=== PATIENT | male | born 1960 | race African-American/Black ===

== ENCOUNTER 2023-02-17 03:39 | Emergency (ER) | payer MEDICAID, OTHER ==
[~2023-02-17] VITALS: Ht 190.5 cm; Wt 95.0 kg
[~2023-02-17 03:39] MED LIST: ALBU4TAB6 PO; PRED5TAB48 PO
[2023-02-17 05:26] LABS: BASOPHILS % 0.6 % (0.0-2.0); EOSINOPHILS % 4.6 % (0.0-5.0); HEMATOCRIT. 40.1 % (42.0-52.0); HEMOGLOBIN. 13.5 g/dL (14.0-18.0); LYMPHOCYTES % 24.6 % (20.0-50.0); MEAN CORPUSCULAR HEMOGLOBIN 32.2 pg (28.0-32.0); MEAN CORPUSCULAR VOLUME 95.3 fL (80.0-94.0); MEAN PLATELET VOLUME 6.8 fl (7.4-10.4); MONOCYTES % 11.9 % (2.0-8.0); NEUTROPHILS % 58.3 % (40.0-76.0); PLATELET 267 x1000/uL (130-400)
[2023-02-17 05:34] LABS: CHLORIDE 108 mEq/L (98-107)
[2023-02-17] MEDS ORDERED: PREDNISONE 20MG TABLET PO STA (05:40)
[2023-02-17] MEDS ORDERED: IPRATROPIUM BROMIDE (0.02%) 0.5MG/2.5ML NEB HHN STA (05:40)
[2023-02-17] MEDS: ALBUTEROL (0.083%) 2.5MG/3ML NEB HHN SCH ×3 (06:00→08:31)
[2023-02-17] MEDS ORDERED: METHYLPREDNISOLONE SOD SUCC 125 MG/2 ML VIAL IM ONE (07:15)
[2023-02-17] MEDS ORDERED: ALBUTEROL (0.083%) 2.5MG/3ML NEB HHN ONE (08:30)
[2023-02-17] MEDS ORDERED: MED4 MT (09:18)
[2023-02-17] MEDS ORDERED: FAMO-135 MT (09:18)
[2023-02-17 09:35] VITALS: BP 143/67
== END 2023-02-17 09:40 | disposition home or self-care (01) ==
LOC: ER 03:39
DX: J44.1 Chronic obstructive pulmonary disease with (acute) exacerbation (principal); I11.0 Hypertensive heart disease with heart failure; I50.9 Heart failure, unspecified
CPT/HCPCS: 36415; 71045; 80053; 83690; 83880; 84484; 85025; 93005; 94640; 96372; 99285; J2930; Z7610

== ENCOUNTER 2023-05-15 05:43 | Emergency (ER) | payer OTHER ==
[~2023-05-15] VITALS: Ht 182.9 cm; Wt 91.6 kg
[~2023-05-15 05:43] MED LIST changes: +FAMO-135 MT; +MED4 MT
[2023-05-15 06:06] LABS: BASOPHILS % 0.5 % (0.0-2.0); EOSINOPHILS % 3.2 % (0.0-5.0); HEMOGLOBIN. 13.3 g/dL (14.0-18.0); LYMPHOCYTES % 23.4 % (20.0-50.0); MEAN CORPUSCULAR HEMOGLOBIN 31.8 pg (28.0-32.0); MEAN CORPUSCULAR HGB CONC 31.8 g/dL (31.0-37.0); MEAN PLATELET VOLUME 6.5 fl (7.4-10.4); MONOCYTES % 9.6 % (2.0-8.0); NEUTROPHILS % 63.3 % (40.0-76.0); PLATELET 342 x1000/uL (130-400); RED CELL DISTRIBUTION WIDTH 13.4 % (11.6-14.6); WHITE BLOOD COUNT 6.9 x1000/uL (4.5-11.0)
[2023-05-15] MEDS ORDERED: MAGNESIUM 2 G PREMIX 50 ML IV STA (06:16)
[2023-05-15] MEDS ORDERED: IPRATROPIUM BROMIDE (0.02%) 0.5MG/2.5ML NEB HHN STA (06:16)
[2023-05-15] MEDS ORDERED: ALBUTEROL (0.083%) 2.5MG/3ML NEB HHN STA (06:16)
[2023-05-15] MEDS ORDERED: METHYLPREDNISOLONE SOD SUCC 125MG/2ML (ACT-O-VIAL) IV STA (06:16)
[2023-05-15 06:21] LABS: ALBUMIN 3.5 g/dL (3.4-5.0); CALCIUM 7.9 mg/dL (8.5-10.1); CHLORIDE 112 mEq/L (98-107); INDEX HEMOLYSI 4 (1-3); INDEX ICTERIC 1 (1-4); INDEX LIPEMIC 1 (1-3); POTASSIUM 4.6 mEq/L (3.5-5.1); SODIUM 139 mEq/L (136-145)
[2023-05-15 06:28] LABS: ALANINE AMINOTRANSFERASE 34 IU/L (13-61); ASPARTATE AMINOTRANSFERASE 20 IU/L (15-37); BILIRUBIN TOTAL 0.3 mg/dL (0.1-1.0); CARBON DIOXIDE 27 mEq/L (21-32); GLUCOSE 149 mg/dL (70-105); PROTEIN TOTAL 6.7 g/dL (6.0-8.3); TROPONIN I HIGH SENSITIVITY 9 ng/L (<78); UREA NITROGEN BLOOD 9 mg/dL (7-21)
[2023-05-15] MEDS ORDERED: METHYLPREDNISOLONE SOD SUCC 125MG VIAL IV NR (06:45)
[2023-05-15 07:30] VITALS: PULSE 64; RESP 18; O2SAT 96
[2023-05-15 07:50] VITALS: BP 141/76; PULSE 65; RESP 13; TEMP 98.7
[2023-05-15] MEDS ORDERED: ALBU05 NEB (09:12)
[2023-05-15] MEDS ORDERED: MED4 PO (09:12)
[2023-05-15] MEDS ORDERED: TOPUD PO (09:12)
== END 2023-05-15 09:50 | disposition home or self-care (01) ==
LOC: ER 05:43
DX: J44.1 Chronic obstructive pulmonary disease with (acute) exacerbation (principal); I11.0 Hypertensive heart disease with heart failure; I50.9 Heart failure, unspecified
CPT/HCPCS: 80053; 85025; 84484; 36415; 71045; 93005; 94644; 96365; 96366; 96375; 99285; J3475; J2930; Z7610 ×7

== ENCOUNTER 2023-06-19 06:03 | Emergency (ER) | payer OTHER ==
[~2023-06-19] VITALS: Ht 190.5 cm; Wt 91.9 kg
[~2023-06-19 06:03] MED LIST changes: +ALBU05 NEB; +MED4 PO; +TOPUD PO
[2023-06-19 06:12] VITALS: BP 142/76; RESP 18; TEMP 98.6; O2SAT 95
[2023-06-19 06:14] VITALS: PULSE 103
[2023-06-19 07:48] LABS: BASOPHILS % 0.2 % (0.0-2.0); EOSINOPHILS % 0.6 % (0.0-5.0); LYMPHOCYTES % 9.6 % (20.0-50.0); MEAN CORPUSCULAR HEMOGLOBIN 32.2 pg (28.0-32.0); MEAN CORPUSCULAR HGB CONC 33.3 g/dL (31.0-37.0); MEAN CORPUSCULAR VOLUME 96.6 fL (80.0-94.0); MEAN PLATELET VOLUME 6.5 fl (7.4-10.4); MONOCYTES % 8.3 % (2.0-8.0); NEUTROPHILS % 81.3 % (40.0-76.0); PLATELET 302 x1000/uL (130-400); RED BLOOD CELL COUNT 4.03 mill/uL (4.7-6.1); RED CELL DISTRIBUTION WIDTH 13.2 % (11.6-14.6); WHITE BLOOD COUNT 6.5 x1000/uL (4.5-11.0)
[2023-06-19 07:50] LABS: CHLORIDE 107 mEq/L (98-107); INDEX HEMOLYSI 1 (1-3); INDEX ICTERIC 1 (1-4); INDEX LIPEMIC 1 (1-3); POTASSIUM 3.7 mEq/L (3.5-5.1); SODIUM 140 mEq/L (136-145)
[2023-06-19 08:03] LABS: ALANINE AMINOTRANSFERASE 28 IU/L (13-61); ALBUMIN 3.8 g/dL (3.4-5.0); ASPARTATE AMINOTRANSFERASE 18 IU/L (15-37); BILIRUBIN TOTAL 0.5 mg/dL (0.1-1.0); CALCIUM 8.8 mg/dL (8.5-10.1); CARBON DIOXIDE 23 mEq/L (21-32); CREATININE 0.8 mg/dL (0.6-1.3); GLUCOSE 151 mg/dL (70-105); NT PRO B-TYPE NATRIURETIC PEP 35 pg/mL (5-125); PROTEIN TOTAL 6.9 g/dL (6.0-8.3); TROPONIN I HIGH SENSITIVITY 9 ng/L (<78); UREA NITROGEN BLOOD 8 mg/dL (7-21)
[2023-06-19] MEDS ORDERED: MAGNESIUM 2 G PREMIX 50 ML IV STA (09:32)
[2023-06-19] MEDS ORDERED: IPRATROPIUM BROMIDE (0.02%) 0.5MG/2.5ML NEB HHN STA (09:32)
[2023-06-19] MEDS ORDERED: ALBUTEROL (0.083%) 2.5MG/3ML NEB HHN STA (09:32)
[2023-06-19] MEDS ORDERED: METHYLPREDNISOLONE SOD SUCC 125MG/2ML (ACT-O-VIAL) IV STA (09:32)
== END 2023-06-19 14:09 | disposition left against medical advice (07) ==
LOC: ER 06:03 → CANBEDREQ 06-20 21:22
DX: J44.1 Chronic obstructive pulmonary disease with (acute) exacerbation (principal)
CPT/HCPCS: 36415; 71045; 80053; 83880; 84484; 85025; 93005; 99285

== ENCOUNTER 2023-06-21 06:22 | Emergency (ER) | payer OTHER ==
[~2023-06-21] VITALS: Ht 185.4 cm; Wt 94.0 kg
[2023-06-21 06:27] VITALS: O2SAT 95
[2023-06-21 07:25] LABS: BASOPHILS % 0.7 % (0.0-2.0); EOSINOPHILS % 3.4 % (0.0-5.0); HEMATOCRIT. 40.3 % (42.0-52.0); HEMOGLOBIN. 13.4 g/dL (14.0-18.0); LYMPHOCYTES % 25.6 % (20.0-50.0); MEAN CORPUSCULAR HEMOGLOBIN 31.7 pg (28.0-32.0); MEAN CORPUSCULAR HGB CONC 33.1 g/dL (31.0-37.0); MEAN CORPUSCULAR VOLUME 95.8 fL (80.0-94.0); MEAN PLATELET VOLUME 6.7 fl (7.4-10.4); MONOCYTES % 11.1 % (2.0-8.0); NEUTROPHILS % 59.2 % (40.0-76.0); PLATELET 295 x1000/uL (130-400); RED BLOOD CELL COUNT 4.21 mill/uL (4.7-6.1); RED CELL DISTRIBUTION WIDTH 13.5 % (11.6-14.6); WHITE BLOOD COUNT 5.7 x1000/uL (4.5-11.0)
[2023-06-21 07:27] LABS: PARTIAL THROMBOPLASTIN TIME 25.1 sec (23.4-31.0); PROTHROMBIN TIME 10.3 sec (9.6-11.0)
[2023-06-21] MEDS ORDERED: ALBUTEROL (0.083%) 2.5MG/3ML NEB HHN STA (07:27)
[2023-06-21] MEDS ORDERED: IPRATROPIUM BROMIDE (0.02%) 0.5MG/2.5ML NEB HHN STA (07:27)
[2023-06-21] MEDS ORDERED: METHYLPREDNISOLONE SOD SUCC 125MG/2ML (ACT-O-VIAL) IV STA (07:27)
[2023-06-21 07:32] LABS: CHLORIDE 110 mEq/L (98-107); INDEX HEMOLYSI 2 (1-3); INDEX ICTERIC 1 (1-4); INDEX LIPEMIC 1 (1-3); POTASSIUM 3.6 mEq/L (3.5-5.1); SODIUM 142 mEq/L (136-145)
[2023-06-21 07:43] LABS: ALANINE AMINOTRANSFERASE 24 IU/L (13-61); ALBUMIN 3.5 g/dL (3.4-5.0); ASPARTATE AMINOTRANSFERASE 17 IU/L (15-37); BILIRUBIN TOTAL 0.3 mg/dL (0.1-1.0); CALCIUM 8.6 mg/dL (8.5-10.1); CARBON DIOXIDE 28 mEq/L (21-32); CREATININE 0.9 mg/dL (0.6-1.3); GLUCOSE 133 mg/dL (70-105); PROTEIN TOTAL 6.3 g/dL (6.0-8.3); TROPONIN I HIGH SENSITIVITY 10 ng/L (<78); UREA NITROGEN BLOOD 12 mg/dL (7-21)
[2023-06-21 08:30] VITALS: PULSE 69; RESP 20
[2023-06-21] MEDS ORDERED: GUAI120017 PO (09:36)
[2023-06-21] MEDS ORDERED: P50 PO ×2 (09:36)
[2023-06-21 09:52] LABS: CLARITY URINE CLEAR (CLEAR); COLOR URINE YELLOW (YELLOW); GLUCOSE URINE NEGATIVE (NEGATIVE); KETONES URINE TRACE (NEGATIVE); LEUKOCYTE ESTERASE URINE NEGATIVE (NEGATIVE); NITRITE URINE NEGATIVE (NEGATIVE); OCCULT BLOOD URINE NEGATIVE (NEGATIVE); PROTEIN URINE TRACE (NEGATIVE); SPECIFIC GRAVITY URINE 1.021 (1.005-1.030)
[2023-06-21] MEDS ORDERED: MED4 MT (10:00)
[2023-06-21 10:16] VITALS: BP 138/97; PULSE 69; RESP 20; TEMP 98.2
[2023-06-21 10:28] LABS: BACTERIA URINE NONE SEEN; MUCUS URINE 2+ /lpf (NONE/TRACE); RBC URINE NONE SEEN /hpf (0-2); SQUAMOUS EPITHELIAL CELL URINE NONE SEEN /lpf (RARE/1+); WBC URINE 0-2 /hpf (0-2)
== END 2023-06-21 10:18 | disposition home or self-care (01) ==
LOC: ER 06:22
DX: J44.1 Chronic obstructive pulmonary disease with (acute) exacerbation (principal); Z79.899 Other long term (current) drug therapy
CPT/HCPCS: 80053; 81003; 83880; 85025; 85610; 85730; 84484; 36415; 71045; 93005; 94644; 96374; 99285; J2930; Z7610 ×5

== ENCOUNTER 2023-08-22 06:04 | Emergency (ER) | payer OTHER ==
[~2023-08-22] VITALS: Ht 190.5 cm; Wt 88.8 kg
[~2023-08-22 06:04] MED LIST changes: +GUAI120017 PO
[2023-08-22] MEDS ORDERED: METHYLPREDNISOLONE SOD SUCC 125MG/2ML (ACT-O-VIAL) IV STA (06:26)
[2023-08-22] MEDS ORDERED: ALBUTEROL (0.083%) 2.5MG/3ML NEB HHN STA (06:26)
[2023-08-22 06:45] VITALS: TEMP 98
[2023-08-22 07:02] LABS: BASOPHILS % 0.7 % (0.0-2.0); EOSINOPHILS % 1.1 % (0.0-5.0); HEMATOCRIT. 42.7 % (42.0-52.0); HEMOGLOBIN. 14.3 g/dL (14.0-18.0); LYMPHOCYTES % 16.9 % (20.0-50.0); MEAN CORPUSCULAR HEMOGLOBIN 32.3 pg (28.0-32.0); MEAN CORPUSCULAR HGB CONC 33.6 g/dL (31.0-37.0); MEAN CORPUSCULAR VOLUME 96.2 fL (80.0-94.0); MONOCYTES % 12.9 % (2.0-8.0); NEUTROPHILS % 68.4 % (40.0-76.0); PLATELET 297 x1000/uL (130-400); RED BLOOD CELL COUNT 4.43 mill/uL (4.7-6.1); RED CELL DISTRIBUTION WIDTH 13.4 % (11.6-14.6); WHITE BLOOD COUNT 7.4 x1000/uL (4.5-11.0)
[2023-08-22 07:19] VITALS: PULSE 67; RESP 18; O2SAT 97
[2023-08-22 07:22] LABS: ALANINE AMINOTRANSFERASE 24 IU/L (10-49); ALBUMIN 4.3 g/dL (3.2-4.8); ASPARTATE AMINOTRANSFERASE 22 IU/L (<34); BILIRUBIN TOTAL 0.6 mg/dL (0.1-1.0); CALCIUM 9.5 mg/dL (8.7-10.4); CARBON DIOXIDE 28 mEq/L (21-32); CHLORIDE 106 mEq/L (98-107); GLUCOSE 149 mg/dL (70-105); POTASSIUM 4.2 mEq/L (3.5-5.1); PROTEIN TOTAL 6.3 g/dL (6.0-8.3); SODIUM 141 mEq/L (136-145); UREA NITROGEN BLOOD 9 mg/dL (9-23)
[2023-08-22] MEDS ORDERED: ALBU05 NEB (08:08)
[2023-08-22] MEDS ORDERED: ALBU6.7H15 INH (08:08)
[2023-08-22] MEDS ORDERED: P50 MT (08:08)
[2023-08-22] MEDS ORDERED: BENZ200C52 MT (08:08)
[2023-08-22 08:31] VITALS: BP 138/89; PULSE 73; RESP 18
== END 2023-08-22 09:10 | disposition home or self-care (01) ==
LOC: ER 06:04
DX: J44.1 Chronic obstructive pulmonary disease with (acute) exacerbation (principal); Z79.899 Other long term (current) drug therapy
CPT/HCPCS: 80053; 85025; 36415; 71045; 94640; 93005; 96374; 99285; Z7610 ×5; J2930

== ENCOUNTER 2023-11-03 06:51 | Emergency (ER) | payer OTHER ==
[~2023-11-03] VITALS: Ht 180.3 cm; Wt 87.0 kg
[~2023-11-03 06:51] MED LIST changes: +ALBU6.7H15 INH; +BENZ200C52 MT; +P50 MT
[2023-11-03 07:18] VITALS: O2SAT 84
[2023-11-03] MEDS ORDERED: IPRA3AMP9 NEB (07:20)
[2023-11-03] MEDS ORDERED: METH4TAB17 MT (07:20)
[2023-11-03 07:42] VITALS: BP 135/75; PULSE 97; RESP 16; TEMP 98.6
== END 2023-11-03 07:42 | disposition home or self-care (01) ==
LOC: ER 06:51
DX: J44.1 Chronic obstructive pulmonary disease with (acute) exacerbation (principal); Z79.899 Other long term (current) drug therapy
CPT/HCPCS: 99281; 99283

== ENCOUNTER 2024-11-10 18:16 | Emergency (ER) | payer OTHER, MEDICAID ==
[~2024-11-10] VITALS: Ht 172.7 cm; Wt 94.0 kg
[~2024-11-10 18:16] MED LIST changes: +IPRA3AMP9 NEB; -MED4 MT; -MED4 PO; +METH4TAB17 MT; +METH4TAB95 MT; +METH4TAB95 PO
[2024-11-10 18:24] VITALS: O2SAT 98
[2024-11-10] MEDS ORDERED: ONDANSETRON HCL 4MG/2ML INJ IV STA (18:25)
[2024-11-10] MEDS ORDERED: MORPHINE SULFATE 4 MG/ML INJ (FOR IV/IM USE) IV STA (18:25)
[2024-11-10 21:04] LABS: BASOPHILS % 0.5 % (0.0-2.0); EOSINOPHILS % 1.4 % (0.0-5.0); HEMATOCRIT. 38.7 % (42.0-52.0); LYMPHOCYTES % 16.6 % (20.0-50.0); MEAN CORPUSCULAR HGB CONC 33.7 g/dL (31.0-37.0); NEUTROPHILS % 72.5 % (40.0-76.0); PLATELET 290 x1000/uL (130-400); RED BLOOD CELL COUNT 3.95 mill/uL (4.7-6.1); RED CELL DISTRIBUTION WIDTH 13.6 % (11.6-14.6); WHITE BLOOD COUNT 9.2 x1000/uL (4.5-11.0)
[2024-11-10 21:08] LABS: CHLORIDE 104 mEq/L (98-107); POTASSIUM 3.7 mEq/L (3.5-5.1); SODIUM 139 mEq/L (136-145)
[2024-11-10 21:09] LABS: CARBON DIOXIDE 30 mEq/L (21-32)
[2024-11-10 21:15] LABS: CREATININE 0.9 mg/dL (0.6-1.3); GLUCOSE 89 mg/dL (70-105); UREA NITROGEN BLOOD 7 mg/dL (9-23)
[2024-11-10 21:16] LABS: ALANINE AMINOTRANSFERASE 12 IU/L (10-49); ALBUMIN 3.5 g/dL (3.2-4.8); ASPARTATE AMINOTRANSFERASE 14 IU/L (<34); PROTHROMBIN TIME 10.7 sec (9.6-11.0)
[2024-11-10 21:17] LABS: BILIRUBIN DIRECT 0.2 mg/dL (<=3.0); BILIRUBIN TOTAL 0.4 mg/dL (0.1-1.0)
[2024-11-10 23:27] VITALS: BP 125/85; PULSE 85; RESP 18; TEMP 37.3; O2SAT 99
[2024-11-10] MEDS: MORPHINE SULFATE 4 MG/ML INJ (FOR IV/IM USE) IV NR (23:27)
[2024-11-10] MEDS: ONDANSETRON HCL 4MG/2ML INJ IV NR (23:27)
== END 2024-11-11 00:10 | disposition short-term general hospital (02) ==
LOC: ER 18:16
DX: G89.29 Other chronic pain (principal); R10.9 Unspecified abdominal pain; J44.9 Chronic obstructive pulmonary disease, unspecified; Z79.899 Other long term (current) drug therapy
CPT/HCPCS: 99285; 96374; 96375; 80076; 80048; 83690; 85025; 85610; 86850; 86900; 86901; 36415; J2405; J2270